=== PATIENT | female | born 1945 | race Caucasian/White ===

== ENCOUNTER 2017-01-21 15:09 | Emergency (ER) | payer MEDICARE ==
[2017-01-21 15:47] LABS: BASOPHILS 0.5 % (0.0-2.0); EOSINOPHILS 1.8 % (0.0-6.0); EOSINOPHILS# 0.1 X 10^3uL (0.0-0.4); HEMATOCRIT 44.3 % (36.0-48.0); HEMOGLOBIN 15.9 g/dL (12.0-16.0); LYMPHOCYTES 26.7 % (20.0-40.0); LYMPHOCYTES# 1.5 X 10^3uL (0.8-3.8); MEAN CELL VOLUME 92.3 fL (80.0-100.0); MEAN CORPUS. HGB CONCENTRATION 35.8 g/dL (32.0-36.0); MEAN PLATELET VOLUME 7.5 fL (7.4-10.4); MONOCYTES 7.3 % (2.0-10.0); MONOCYTES# 0.4 X 10^3uL (0.2-1.0); NEUTROPHILS 63.7 % (54.0-75.0); NEUTROPHILS# 3.8 X 10^3uL (2.6-6.7); PLATELET COUNT 235 X 10^3uL (130-440); RED CELL DISTRIBUTION WIDTH 12.2 % (11.5-14.5); WHITE BLOOD COUNT 5.8 X 10^3uL (3.9-10.7)
[2017-01-21 16:01] LABS: ALBUMIN 4.6 g/dL (3.5-5.0); ALKALINE PHOSPHATASE 102 U/L (38-126); ALT 38 U/L (9-52); AST 30 U/L (14-36); BILIRUBIN, TOTAL 0.5 mg/dL (0.2-1.3); BLOOD UREA NITROGEN 15 mg/dL (7-17); CALCIUM 10.9 mg/dL (8.4-10.2); CHLORIDE 96 mmol/L (98-107); CREATININE 0.8 mg/dL (0.5-1.0); EST GLOMERULAR FILTRATION RATE > 60 mL/min; GLUCOSE 103 mg/dL (70-100); LIPASE 349 U/L (23-300); MAGNESIUM 1.8 mg/dL (1.6-2.3); SODIUM 137 mmol/L (137-145); TOTAL PROTEIN 7.9 g/dL (6.3-8.2)
[2017-01-21] MEDS ORDERED: hydrALAZINE HCL 20 MG/ML VIAL ONE (16:06)
[2017-01-21 16:15] LABS: TROPONIN I < 0.012 ng/mL (0.00-0.034)
--- NOTE | 2017-01-21 17:31 | CT REPORT ---
HISTORY: Status post colonoscopy 01/18/2017. Abdominal pain since. COMPARISON: None. TECHNIQUE: This examination was performed using automated exposure control, adjustment of mA or kV according to patient size, and/or use of iterative reconstruction technique. Contiguous axial images of the abdome n and pelvis were obtained following the administration of IV contrast. Coronal reconstructions. 100 cc Isovue-300 IV. Study is somewhat limited secondary to excessive patient motion FINDINGS: Lung bases: Visualized lung bases and cardiomediastinum are within normal limits. Liver: Unremarkable. Biliary: Status post cholecystectomy. Spleen: Unremarkable. Pancreas: Unremarkable. Adrenal glands: Unremarkable. Urinary tract: Markedly atrophic right kidney which probably is nonfunctioning. Tiny nonobstructing r ight upper renal pole calculus. Compensatory hypertrophy left kidney. Bowel: Within limitations of the motion degraded examination the bowel is remarkable for a prominent amount of stool within the right colon. There are surgical clips at the level of cecum presumably fro m prior appendectomy procedure. No gross bowel wall thickening. Small bowel is grossly decompressed t hroughout. Stomach is decompressed. Duodenal sweep grossly unremarkable within limitations of the exa m. Anterior abdominal wall: Small fat containing periumbilical hernia. Mesentery/peritoneum/omentum: Large chunky right lower quadrant mesenteric based calcification shoul d overall benign in appearance. No gross free intraperitoneal air or free fluid on this motion degrad ed exam.. Retroperitoneum: No retroperitoneal lymphadenopathy is identified. Mild atherosclerotic changes of the aortoiliac circulation. Pelvis: Mildly distended urinary bladder. Uterus is surgically absent. Osseous structures: Multilevel degenerative changes noted throughout the spine most pronounced L5-S1 level where there is mild to moderate left neural foraminal narrowing. No suspicious osseous blastic or lytic lesions. Critical results were communicated with CHRISTOFER ALEXIS at 01/21/2017 5:26 PM. IMPRESSION: Limited study secondary to patient motion. Large amount of stool within the right colon most consistent with imaging findings of constipation. Markedly atrophic right kidney with tiny nonobstructing right upper renal pole calculus. This is prob ably a nonfunctioning kidney. Compensatory hypertrophy left kidney. Final Electronic Signature: This report was electronically signed by Rocky Preston MD on 01/21/2017 5: 28 PM. sury /
--- NOTE | 2017-01-21 18:18 | ER PHYSICIAN DOCUMENTATION ---
Physician Documentation [facility] Name:Darlyn Luis Age:71 yrs Sex:Female :1945 Arrival Date:01/21/2017 Time:15:09 Bed4 Private MD:Anne Marie Siegel ED, John Disposition: 01/21/17 18:04 Discharged to Home/Self Care. Impression: Constipation, Pancreatitis, Acute. - Condition is Good. - Discharge Instructions: CONSTIPATION (Adult), Acute Pancreatitis - PANCREATITIS. - Medical Reconciliation form form. - Follow up: Anne Marie Siegel MD; When: Tomorrow; Reason: Continuance of care. - Problem is new. - Symptoms have improved. HPI: 01/21 16:00 This 71 yrs old Female presents to ER via Private Vehicle with complaints of jm Abdominal Pain, Chest Tightness, High Blood Pressure. 16:00 The patient presents with abdominal pain in the epigastric area. Onset: The jm symptoms/episode began/occurred 4 day(s) ago. The symptoms do not radiate. Associated signs and symptoms: Pertinent negatives: chest pain, fever, nausea, shortness of breath, vomiting. The symptoms are described as dull, steady. Modifying factors: the symptoms are aggravated by nothing. Severity of pain: in the emergency department the pain is a 5 / 10. The patient has not experienced similar symptoms in the past. The patient has been recently seen by a physician: Dr. Arias for a colonoscopy. Pt worried that something went terribly wrong after her colonoscopy b/c she's had consistent pain since then and no ability to have a BM. . Historical: - Allergies: Amoxicillin; Cephalexin; flaxseed oil; - Home Meds: 1. None - PMHx: None; - PSHx: None; - Tetanus: unknown. - Ebola Screening: : Patient negative for fever greater than or equal to 101.5 degrees Fahrenheit, and additional compatible Ebola Virus Disease symptoms. Patient denies exposure to infectious person. Patient denies travel to an Ebola-affected area in the 21 days before illness onset. No symptoms or risks identified at this time. . - Immunization history: Pneumococcal vaccine is not up to date, Flu Vaccine >1 year. - Social history: Smoking status: Patient states was never smoker of tobacco. Patient/guardian denies using alcohol, street drugs, IV drugs, marijuana. ROS: 01/22 09:07 Constitutional: Negative for fever, malaise. Cardiovascular: Negative for chest pain. Respiratory: Negative for cough. Abdomen/GI: Positive for abdominal pain, constipation. All other systems are negative. Exam: 09:07 Constitutional: The patient appears in no acute distress, alert, awake. 09:07 Eyes: Periorbital structures: appear normal, Conjunctiva: normal. 09:07 ENT: Mouth: is normal, Voice: is normal. 09:07 Neck: Thyroid: appears normal, Trachea: is midline with no obvious abnormalities. 09:07 Cardiovascular: Rate: normal, Rhythm: regular. 09:07 Respiratory: Respirations: normal, Breath sounds: are normal. 09:07 Abdomen/GI: Inspection: distension, is not seen, Bowel sounds: normal, Palpation: nontender, mild abdominal tenderness, in the epigastric area and right lower quadrant. 09:07 Back: pain, is absent, CVA tenderness, is absent. 09:07 : CVA tenderness, is absent, Bladder: is normal. 09:07 Musculoskeletal/extremity: Pulses: are normal with no appreciated deficits, Weight bearing: able to fully bear weight. 09:07 Skin: Appearance: Color: pink, no rash present. 09:07 Neuro: Mentation: is normal, Memory: is normal. 09:07 Psych: Behavior/mood is pleasant, cooperative, Affect is calm. Vital Signs: 01/21 15:15 BP 209 / 109; Pulse 72; Resp 18; Temp 97.9; Pulse Ox 94% on R/A; sc1 15:30 BP 186 / 91 (auto/); sc1 15:39 Pulse Ox 94% ; sc1 15:46 BP 202 / 88 (auto/); sc1 15:59 Pulse Ox 95% ; sc1 16:01 BP 196 / 80 (auto/); sc1 16:15 BP 156 / 72 (auto/); sc1 16:29 Pulse Ox 95% ; sc1 16:30 BP 160 / 74 (auto/); sc1 18:00 BP 156 / 96 (auto/); sc1 MDM: 15:21 Patient medically screened. 01/22 09:10 Differential diagnosis: bowel obstruction, non-specific abd pain, pancreatitis, jm perforation, constiptation. Data reviewed: vital signs, nurses notes, old medical records, lab test result(s), radiologic studies, and as a result, I will discharge patient. Counseling: I had a detailed discussion with the patient and/or guardian regarding: the historical points, exam findings, and any diagnostic results supporting the discharge/admit diagnosis, lab results, radiology results, the need for outpatient follow up, with the patient's primary care provider. Physician consultation: Anne Marie Siegel MD regarding outpatient follow-up, tomorrow, in 2-3 days, and will see patient tomorrow, in 2-3 days. ED course: Lipase is mildly elevated, which is unusual. I doubt pancreatitis, but pt has tenderness in that area. CT shows no changes of the pancreas or any issue with exception of a good sized stool burden. Pt most likely constipated. Pt will f/u w Dr. Siegel for BP control and her pain issues tomorrow or Sunday. . 21:44 EKG attached sc1 01/21 15:55 Order name: CBC AUTO DIF, MDIF/RMOR IF IND; Complete Time: 16:30 EDMS 01/21 16:16 Order name: BASIC METABOLIC PANEL; Complete Time: 16:30 EDMS 01/21 16:16 Order name: MAGNESIUM; Complete Time: 16:30 EDMS 01/21 16:16 Order name: HEPATIC PANEL; Complete Time: 16:30 EDMS 01/21 16:16 Order name: LIPASE; Complete Time: 16:30 EDMS 01/21 16:16 Order name: TROPONIN I; Complete Time: 16:30 EDMS 01/21 15:40 Order name: CHEST; SINGLE VIEW [id number] EDMT 01/21 17:01 Order name: CAT SCAN; ABD/PEL W [id number]; Complete Time: 18:03 EDMS 01/21 21:19 Order name: CHEST; SINGLE VIEW [id number] EDMT 01/21 15:23 Order name: 12-lead EKG; Complete Time: 15:42 01/21 15:23 Order name: Iv Saline Lock; Complete Time: 15:42 01/21 15:23 Order name: Place Patient On Monitor; Complete Time: 15:42 01/21 15:23 Order name: Pulse Ox Continuous; Complete Time: 15:42 Dispensed Medications: 01/21 16:01 Drug: hydrALAZINE 10 mg; Route: IVP; Site: left antecubital; sc1 17:28 Follow up: Response: No adverse reaction; Blood pressure is lowered sc1 Signatures: Edilma Motley RN RN sc1 Reece Ohcoa MD MD jm
--- NOTE | 2017-01-21 18:18 | ER NURSING DOCUMENTATION ---
Nurse's Notes [facility] Name:Darlyn Luis Age:71 yrs Sex:Female :1945 Arrival Date:01/21/2017 Time:15:09 Bed4 Private MD:Anne Marie Siegel Diagnosis:Constipation;Pancreatitis, Acute Presentation: 01/21 15:26 Presenting complaint: Patient states: she had a colonoscopy on and is c/o sc1 diaphragmatic pain radiating to her chest and upper back. Denies SOB, diaphoresis. Transition of care: Home. 15:26 Method Of Arrival: Private Vehicle nd1 15:26 Acuity: HAJA 3 sc1 Triage Assessment: 15:30 General: Appears comfortable, well developed, well nourished, well groomed, Behavior is sc1 cooperative, pleasant. Pain: Complains of pain in chest and abdomen diffusely. Historical: - Allergies: Amoxicillin; Cephalexin; flaxseed oil; - Home Meds: 1. None - PMHx: None; - PSHx: None; - Tetanus: unknown. - Ebola Screening: : Patient negative for fever greater than or equal to 101.5 degrees Fahrenheit, and additional compatible Ebola Virus Disease symptoms. Patient denies exposure to infectious person. Patient denies travel to an Ebola-affected area in the 21 days before illness onset. No symptoms or risks identified at this time. . - Immunization history: Pneumococcal vaccine is not up to date, Flu Vaccine >1 year. - Social history: Smoking status: Patient states was never smoker of tobacco. Patient/guardian denies using alcohol, street drugs, IV drugs, marijuana. Screenin:45 Infectious Disease Risk None. Abuse screen: Denies threats or abuse. Nutritional sc1 screening: No deficits noted. Assessment: 18:17 GI: Bowel sounds present X 4 quads. Abd is soft and non tender. sc1 Vital Signs: 15:15 BP 209 / 109; Pulse 72; Resp 18; Temp 97.9; Pulse Ox 94% on R/A; sc1 15:30 BP 186 / 91 (auto/); sc1 15:39 Pulse Ox 94% ; sc1 15:46 BP 202 / 88 (auto/); sc1 15:59 Pulse Ox 95% ; sc1 16:01 BP 196 / 80 (auto/); sc1 16:15 BP 156 / 72 (auto/); sc1 16:29 Pulse Ox 95% ; sc1 16:30 BP 160 / 74 (auto/); sc1 18:00 BP 156 / 96 (auto/); nd1 ED Course: 15:12 Patient arrived in ED. ma1 15:12 Anne Marie Siegel MD is Private Physician. ma1 15:[address] Ochoa notified. Allergy Band Placed Arm band placed on Bed in nd1 low position Call Light in Reach Gowned HOB Elevated Side rails up x1. EKG done per protocol. Performed by ED Staff. Shown to ED physician. Labs ordered per protocol. Drawn by ED staff. X-ray done. X-ray ordered. 15:22 Reece Ochoa MD is Attending Physician. debora 15:25 Edilma Motley, RONALD is Primary Nurse. nd1 15:28 Triage completed. nd1 15:34 Port Xray Completed. hz 15:40 CHEST; SINGLE VIEW [id number] In Process Unspecified. EDMS 16:[address] hz 16:59 CHEST; SINGLE VIEW [id number] Sent. hz 17:00 Patient moved back from CT. hz 17:01 CAT SCAN; ABD/PEL W [id number] In Process Unspecified. EDMS 18:04 Anne Marie Siegel MD is Referral Physician. 18:15 Discontinued lock intact, bleeding controlled, pressure dressing applied, No nd1 redness/swelling at site. 18:17 Valuables Remains with patient. [facility] [place] 05 21:44 EKG attached [facility] [place] Administered Medications: 01/21 16:01 Drug: hydrALAZINE 10 mg; Route: IVP; Site: left antecubital; nd1 17:28 Follow up: Response: No adverse reaction; Blood pressure is lowered [facility] [place] Outcome: 18:04 Discharge ordered by . debora 18:16 Discharged to home ambulatory. [facility] [place] 18:16 Condition: stable 18:16 Discharge instructions given to patient, Instructed on discharge instructions, follow up and referral plans. Demonstrated understanding of instructions. 18:17 Patient left the ED. [facility] [place] Signatures: Dispatcher [employer] EDMS Edilma Motley, RN RN [facility] [place] Reece Ochoa MD MD Elvira Vides [facility]
--- NOTE | 2017-01-21 21:17 | RADIOLOGY REPORT ---
HISTORY: Status post colonoscopy. Abdominal pain since. COMPARISON: None. TECHNIQUE: Limited frontal portable radiograph of the chest. IMPRESSION: 1. Heterogeneous reticular density at the right lung base most consistent with mild atelectasis or s carring and less likely infiltrate. Lungs are otherwise generally clear. 2. Cardiomediastinal silhouette is within normal limits. 3. Central pulmonary vasculature is without congestive changes. 4. No pleural effusions or pneumothorax. Final Electronic Signature: This report was electronically signed by Rocky Preston MD on 01/21/2017 9: 15 PM. sury /
== END 2017-01-21 18:18 | disposition home or self-care (01) ==
LOC: ER 15:09
DX: K59.00 Constipation, unspecified (principal)
CPT/HCPCS: 71010; 74177; 80048; 80076; 83690; 83735; 84484; 85025; 93005; 96374; 99284; J0360